=== PATIENT | female | born 2000 | race Caucasian/White ===

== ENCOUNTER 2020-04-20 18:39 | Emergency (ER) | payer BC ==
[~2020-04-20] VITALS: Ht 165.1 cm; Wt 52.2 kg
[2020-04-20] MEDS ORDERED: IBU600 MG PO (19:35)
[2020-04-20] MEDS ORDERED: NORCO 5-325 TA1 EAC2 PO (19:36)
[2020-04-20 19:49] VITALS: BP 120/67
== END 2020-04-20 19:50 | disposition home or self-care (01) ==
LOC: M.ERS 18:39
DX: S92.354A Nondisplaced fracture of fifth metatarsal bone, right foot, initial encounter for closed fracture (principal); W18.39XA Other fall on same level, initial encounter; Y93.02 Activity, running; Y92.89 Other specified places as the place of occurrence of the external cause; Y99.8 Other external cause status